=== PATIENT | female | born 1955 | race Caucasian/White ===

== ENCOUNTER 2017-05-13 10:13 | Emergency (ER) | payer OTHER ==
[2017-05-13] MEDS ORDERED: IBUPROFEN 800 MG TABLET PO ONE (11:03)
[2017-05-13] MEDS ORDERED: HYDROCODONE/ACETAMINOPHEN 5-325 MG TABLET PO ONE (11:05)
[2017-05-13] MEDS ORDERED: LIDOCAINE 5% (700 MG) TRANSDERMAL ADH..PATCH TP ONE (11:05)
--- NOTE | 2017-05-13 11:07 | ER Document Report ---
HPI - HPI Patient complains to provider of: rib pain Onset: Other - 2 days ago Onset/Duration: Persistent Quality of pain: Sharp Pain Level: 5 Context: Patient states that she was coughing 2 days ago and felt a sudden pop in the right lateral rib area. Patient states since then she has had pain with movement, coughing and reaching for objects with her right upper extremity. Patient denies any fever or dyspnea. Patient states she was diagnosed with asthmatic bronchitis and has an inhaler at home. Associated Symptoms: Chest pain - Right lateral rib tenderness with coughing, Nonproductive cough. denies: Productive cough, Fever, Headache, Nausea, Vomiting, Shortness of breath Exacerbated by: Movement, Coughing Relieved by: Remaining still Similar symptoms previously: No Recently seen / treated by doctor: Yes - ROS ROS below otherwise negative: Yes Systems Reviewed and Negative: Yes All other systems reviewed and negative - CONSTITUTIONAL Constitutional: DENIES: Fever, Chills - NEURO Neurology: DENIES: Weakness - CARDIOVASCULAR Cardiovascular: REPORTS: Chest pain - RESPIRATORY Respiratory: REPORTS: Coughing. DENIES: Trouble Breathing - GASTROINTESTINAL Gastrointestinal: DENIES: Abdominal Pain, Nausea, Patient vomiting - REPRODUCTIVE Reproductive: DENIES: : - MUSCULOSKELETAL Musculoskeletal: DENIES: Back Pain, Neck Pain - DERM Skin Color: Normal Skin Problems: None <ANTHONY TANG - Last Filed: 05/13/17 13:57> Past Medical History - General Information source: Patient - Social History Smoking Status: Never Smoker Chew tobacco use (# tins/day): No Frequency of alcohol use: None Drug Abuse: None Occupation: none Lives with: Spouse/Significant other Family History: CAD Patient has suicidal ideation: No Patient has homicidal ideation: No - Past Medical History Cardiac Medical History: Denies: Hx Coronary Artery Disease, Hx Heart Attack, Hx Hypertension Pulmonary Medical History: Reports: Hx Asthma, Hx Bronchitis Denies: Hx COPD, Hx Pneumonia Neurological Medical History: Denies: Hx Cerebrovascular Accident, Hx Seizures Renal/ Medical History: Denies: Hx Peritoneal Dialysis GI Medical History: Reports: Hx Gastroesophageal Reflux Disease, Hx Hiatal Hernia Musculoskeltal Medical History: Denies Hx Arthritis Psychiatric Medical History: Reports: Hx Anxiety, Hx Depression - anxiety Past Surgical History: Reports: Hx Cardiac Catheterization, Hx Genitourinary Surgery - bladder sling, Hx Tubal Ligation. Denies: Hx Hysterectomy, Hx Pacemaker - Immunizations Hx Diphtheria, Pertussis, Tetanus Vaccination: Yes - february 2011 <ANTHONY TANG - Last Filed: 05/13/17 13:57> Vertical Provider Document - CONSTITUTIONAL Agree With Documented VS: Yes Exam Limitations: No Limitations General Appearance: WD/WN, No Apparent Distress - INFECTION CONTROL TRAVEL OUTSIDE OF THE [place] IN LAST 30 DAYS: No - HEENT HEENT: Atraumatic, Normal ENT Exam, Normocephalic - NECK Neck: Normal Inspection, Supple - RESPIRATORY Respiratory: Breath Sounds Normal, No Respiratory Distress. negative: Chest Non -Tender - right lateral rib tenderness with palpation, Rales, Rhonchi, Wheezing O2 Sat by Pulse Oximetry: 95 - CARDIOVASCULAR Cardiovascular: Regular Rhythm, No Murmur, Tachycardia - 106 - GI/ABDOMEN Gastrointestinal: Abdomen Soft, Abdomen Non-Tender - BACK Back: Normal Inspection. negative: CVA Tenderness-Right, CVA Tenderness-Left - MUSCULOSKELETAL/EXTREMETIES Musculoskeletal/Extremeties: MAEW, FROM - NEURO Level of Consciousness: Awake, Alert, Appropriate Motor/Sensory: No Motor Deficit - DERM Integumentary: Warm, Dry, No Rash <ANTHONY TANG - Last Filed: 05/13/17 13:57> Course - Re-evaluation Re-evalutation: 05/13/17 12:25 resp unlabored HR 84, sat 95% RR 18 Worsening signs or symptoms that patient should return immediately for. Patient verbalized understanding and agrees with plan of care. The patient has been informed that they may have pre-hypertension or hypertension based on a blood pressure reading in the emergency department. I recommend that patient call the primary care provider listed on their discharge instructions or a physician of their choice by this week to arrange follow-up for further evaluation of possible pre-hypertension her hypertension. - Vital Signs Vital signs: Temp Pulse Resp BP Pulse Ox 98.0 F 113 H 12 145/78 H 95 05/13/17 10:25 05/13/17 10:25 05/13/17 10:46 05/13/17 10:25 05/13/17 10:25 - Diagnostic Test Radiology reviewed: Reports reviewed <ANTHONY TANG - Last Filed: 05/13/17 13:57> - Vital Signs Vital signs: Temp Pulse Resp BP Pulse Ox 98.0 F 95 16 128/79 H 95 05/13/17 12:41 05/13/17 12:41 05/13/17 12:41 05/13/17 12:41 05/13/17 13:58 <RADHA LUIS - Last Filed: 05/14/17 14:39> Discharge <ANTHONY TANG - Last Filed: 05/13/17 13:57> <RADHA LUIS - Last Filed: 05/14/17 14:39> - Discharge Clinical Impression: Chest wall pain, Bronchitis, Elevated blood pressure reading Condition: Stable Disposition: HOME, SELF-CARE Instructions: Chest Wall Pain ([facility]), Oral Narcotic Medication ([facility]), Bronchitis ([facility]) Additional Instructions: Return immediately for any new or worsening symptoms Followup with your primary care provider, call tomorrow to make a followup appointment Your blood pressure was elevated today, have your primary doctor recheck this next week. Take your Motrin that you have at home to help with inflammation Do not take the pain pill with your Klonopin to avoid any adverse medication reactions. Take one medication or the other but not both together Prescriptions: Hydrocodone/Acetaminophen [[place] 5-325 Tablet] 1 each PO Q8 PRN #12 tablet PRN Reason: Forms: Elevated Blood Pressure Referrals: PIERRE SANTA MD [Primary Care Provider] - Follow up as needed
--- NOTE | 2017-05-13 11:31 | RADIOLOGY REPORT (SQ) ---
EXAM DESCRIPTION: CHEST PA/LAT COMPLETED DATE/TIME: 05/13/2017 11:22 am REASON FOR STUDY: cough, r lateral rib pain COMPARISON: 08/14/2014 EXAM PARAMETERS: NUMBER OF VIEWS: two views TECHNIQUE: Digital Frontal and Lateral radiographic views of the chest acquired. RADIATION DOSE: NA LIMITATIONS: none FINDINGS: LUNGS AND PLEURA: No opacities, masses or pneumothorax. No pleural effusion. MEDIASTINUM AND HILAR STRUCTURES: No masses or contour abnormalities. HEART AND VASCULAR STRUCTURES: Heart normal size. No evidence for failure. BONES: No acute findings. HARDWARE: None in the chest. OTHER: No other significant finding. IMPRESSION: NO SIGNIFICANT RADIOGRAPHIC FINDING IN THE CHEST. TECHNICAL DOCUMENTATION: JOB ID: [id number] [employer]- All Rights Reserved
[2017-05-13 12:47] VITALS: BP 128/79
== END 2017-05-13 12:48 | disposition home or self-care (01) ==
LOC: ER 10:13
DX: R07.81 Pleurodynia (principal); J40 Bronchitis, not specified as acute or chronic; R03.0 Elevated blood-pressure reading, without diagnosis of hypertension; R05 Cough; Z98.51 Tubal ligation status
CPT/HCPCS: 71020; 99283

== ENCOUNTER 2018-09-04 07:32 | Day surgery (SDC) | payer OTHER ==
[~2018-09-04 07:32] MED LIST: PROPOFOL INJ 200 MG/20 ML VIAL IV ONE
[2018-09-04] MEDS ORDERED: SIMETHICONE 80 MG TAB.CHEW ONE (09:38)
[2018-09-04 10:16] VITALS: BP 126/89
--- NOTE | 2018-09-04 13:41 | Operative Report ---
Operative Report DATE OF SURGERY: 09/04/18 Operative Report: The risks, benefits and alternatives of the procedure including the risks of bleeding, perforation requiring surgery are explained to the patient in detail and informed consent is obtained. The patient is placed in a left, lateral decubital position. Timeout was called. Propofol medication is administered. A rectal examination is done which did not reveal any masses, tears or fissures. An Olympus videoscope was inserted to the patient's rectum. Scope was then carefully advanced all the way to the cecum. Cecum was identified by the usual anatomical landmarks including the ileocecal valve as well as appendiceal office. Photodocumentation is obtained. Prep was poor. Scope was then sequentially pulled back via the various segments of the colon including the ascending colon, hepatic flexure, transverse colon, splenic flexure, descending colon and finally into the rectosigmoid portions of the colon. Retroflexion maneuvers performed The risks benefits and alternatives of the procedure explained to the patient in detail and informed consent is obtained.A GIF Olympus video scope was inserted into the patient's mouth and hypopharynx, the esophagus is identified intubated and insufflated ,the scope was then advanced through the esophagus stomach and duodenum, retroflexion maneuver is done, the esophagus stomach and first and second portions of the duodenum examined PREOPERATIVE DIAGNOSIS: Personal history of polyps. Change of bowel habits. Blood in stool. Early satiety, dyspepsia POSTOPERATIVE DIAGNOSIS: Right colon inflammation status post biopsy. Internal hemorrhoids that likely explains the blood in his stool. Hiatal hernia. Gastritis status post biopsy. Esophagitis OPERATION: Colonoscopy with biopsy. EGD with biopsy SURGEON: CARROLL ARMANDO ANESTHESIA: LMAC TISSUE REMOVED OR ALTERED: As noted above. COMPLICATIONS: None. ESTIMATED BLOOD LOSS: None. INTRAOPERATIVE FINDINGS: As noted above. PROCEDURE: Patient tolerated the procedure well. No immediate postprocedure complications are noted. Patient discharged in good condition. Discharge date 09/04/2018. Discharge diet: Regular. Discharge activity: Regular. 2-3-week follow-up to discuss findings. Patient is instructed call the office or proceed to the emergency room after any further questions or concerns. We will wait on biopsies. Surveillance colonoscopy in 5 years.
== END 2018-09-04 10:06 | disposition home or self-care (01) ==
LOC: END 07:32
PROVIDERS: ATTEND Internal Medicine Gastroenterology
DX: K52.9 Noninfective gastroenteritis and colitis, unspecified (principal); K64.8 Other hemorrhoids; K44.9 Diaphragmatic hernia without obstruction or gangrene; K29.50 Unspecified chronic gastritis without bleeding; K92.1 Melena; E03.9 Hypothyroidism, unspecified; J45.909 Unspecified asthma, uncomplicated; E66.9 Obesity, unspecified; Z68.42 Body mass index [BMI] 45.0-49.9, adult; Z80.0 Family history of malignant neoplasm of digestive organs; Z79.51 Long term (current) use of inhaled steroids
CPT/HCPCS: 43239; 45380; 88342 ×2; 88305 ×2; J2704; 813

== ENCOUNTER → 2018-09-14 | Outpatient (CLI) | payer OTHER ==
--- NOTE | 2018-09-14 12:46 | RADIOLOGY REPORT (SQ) ---
EXAM DESCRIPTION: U/S ABDOMEN LIMITED W/O DOP COMPLETED DATE/TIME: 09/14/2018 12:08 pm REASON FOR STUDY: RUQ PAIN R10.11 RIGHT UPPER QUADRANT PAIN COMPARISON: CT abdomen pelvis 10/01/2014 TECHNIQUE: Dynamic and static grayscale images acquired of the abdomen and recorded on PACS. Additio nal selected color Doppler and spectral images recorded. LIMITATIONS: None. FINDINGS: PANCREAS: Midline pancreas unremarkable LIVER: No masses. Increased echogenicity from fatty infiltration. Small benign hepatic cysts in the left and right lobe liver less than 3 cm in size, similar compared to CT abdomen pelvis 10/01/2014 LIVER VASCULATURE: Normal directional flow of the main portal vein and hepatic veins. GALLBLADDER: No stones. Normal wall thickness. No pericholecystic fluid. ULTRASOUND-DETECTED HIDALGO'S SIGN: Negative. INTRAHEPATIC DUCTS AND COMMON DUCT: CBD and intrahepatic ducts normal caliber. No filling defects. INFERIOR VENA CAVA: Normal flow. AORTA: No aneurysm. RIGHT KIDNEY: Normal size. Normal echogenicity. No solid or suspicious masses. No hydronephrosis. No calcifications. PERITONEAL AND RIGHT PLEURAL SPACE: No ascites or effusions. OTHER: No other significant findings. IMPRESSION: Fatty liver, no gallstones TECHNICAL DOCUMENTATION: JOB ID: [id number] [employer]- All Rights Reserved Reading location - IP/workstation name: [email or web address]
== END ==
LOC: RAD 11:10
PROVIDERS: ATTEND Internal Medicine Gastroenterology
DX: R10.11 Right upper quadrant pain (principal)
CPT/HCPCS: 76705

== ENCOUNTER 2018-12-01 11:21 | Day surgery (SDC) | payer OTHER ==
--- NOTE | 2018-11-24 10:05 | RADIOLOGY REPORT (SQ) ---
EXAM DESCRIPTION: CHEST PA/LATERAL COMPLETED DATE/TIME: 11/24/2018 9:36 am REASON FOR STUDY: PRE-OP COMPARISON: 05/13/2017 EXAM PARAMETERS: NUMBER OF VIEWS: two views TECHNIQUE: Digital Frontal and Lateral radiographic views of the chest acquired. RADIATION DOSE: NA LIMITATIONS: none FINDINGS: LUNGS AND PLEURA: No opacities, masses or pneumothorax. No pleural effusion. MEDIASTINUM AND HILAR STRUCTURES: No masses or contour abnormalities. HEART AND VASCULAR STRUCTURES: Heart normal size. No evidence for failure. BONES: No acute findings. HARDWARE: None in the chest. OTHER: No other significant finding. IMPRESSION: No evidence of acute cardiopulmonary process. TECHNICAL DOCUMENTATION: JOB ID: [id number] [employer]- All Rights Reserved Reading location - IP/workstation name: [email or web address]
[2018-11-24 10:12] LABS: HEMATOCRIT 41.4 % (36.0-47.0); MEAN CORPUSCULAR HEMOGLOBIN 28.3 pg (27.0-33.4); MEAN CORPUSCULAR HGB CONC 33.9 g/dL (32.0-36.0); MEAN CORPUSCULAR VOLUME 84 fl (80-97); PLATELET COUNT 320 10^3/uL (150-450); RED BLOOD COUNT 4.94 10^6/uL (3.72-5.28); RED CELL DISTRIBUTION WIDTH 14.5 % (11.5-14.0); WHITE BLOOD COUNT 7.1 10^3/uL (4.0-10.5)
[2018-11-24 10:47] LABS: ALANINE AMINOTRANSFERASE 28 U/L (9-52); ALBUMIN 4.3 g/dL (3.5-5.0); ALKALINE PHOSPHATASE 97 U/L (38-126); ANION GAP 9 (5-19); ASPARTATE AMINO TRANSFERASE 41 U/L (14-36); BILIRUBIN,DIRECT 0.3 mg/dL (0.0-0.4); BILIRUBIN,TOTAL 0.5 mg/dL (0.2-1.3); BLOOD UREA NITROGEN 13 mg/dL (7-20); CALCIUM 9.6 mg/dL (8.4-10.2); CARBON DIOXIDE 28 mmol/L (22-30); CHLORIDE 104 mmol/L (98-107); GLUCOSE 103 mg/dL (75-110); POTASSIUM 4.7 mmol/L (3.6-5.0); SODIUM 140.6 mmol/L (137-145); TOTAL PROTEIN 7.3 g/dL (6.3-8.2)
--- NOTE | 2018-11-24 23:02 | EKG REPORT ---
SEVERITY:- NORMAL ECG - SINUS RHYTHM : Confirmed by: Shayna Jones MD 24-Nov-2018 23:01:27
[~2018-12-01 11:21] MED LIST changes: +CEFOXITIN SODIUM 2 GM in DEXTROSE 5%-WATER 100 ML IV PRN; +IBUPROFEN 800 MG in NORMAL SALINE 250 ML IV PRN; +LACTATED RINGERS 1000 ML IV PRN; +LIDOCAINE 0.5% INJ-PF (5 MG/ML) 50 ML SDV SUBCUT PRN; -PROPOFOL INJ 200 MG/20 ML VIAL IV ONE; +ROCURONIUM BROMIDE INJ 50 MG/5 ML VIAL IV ONE; +SUCCINYLCHOLINE CHLORIDE INJ 200 MG/10 ML VIAL ONE
[2018-12-01] MEDS ORDERED: FAMOTIDINE INJ/PF 20 MG/2 ML SDV IV ONE (12:59)
[2018-12-01] MEDS ORDERED: METOCLOPRAMIDE HCL INJ/PF 10 MG/2 ML SDV ONE (13:00)
[2018-12-01] MEDS ORDERED: MIDAZOLAM 2 MG/2 ML INJ ONE (16:33)
[2018-12-01] MEDS ORDERED: ONDANSETRON HCL INJ/PF 4 MG/2 ML SDV ONE (16:33)
[2018-12-01] MEDS ORDERED: FENTANYL CITRATE INJ/PF 100 MCG/2 ML AMPUL ONE (16:33)
[2018-12-01] MEDS ORDERED: DEXAMETHASONE SOD PHOSPHATE INJ 4 MG/1 ML VIAL ONE (16:33)
[2018-12-01] MEDS ORDERED: HYDROMORPHONE HCL INJ/PF 2 MG/ML AMPULE ONE (16:33)
[2018-12-01] MEDS ORDERED: ACETAMINOPHEN 1,000 MG/100 ML RTUPB IV ONE (16:34)
[2018-12-01] MEDS ORDERED: PROPOFOL INJ 200 MG/20 ML VIAL IV ONE (16:34)
[2018-12-01] MEDS ORDERED: BUPIVACAINE HCL 0.25 % INJ/PF (2.5 MG/1 ML) 30 ML VIAL ONE (16:51)
[2018-12-01] MEDS ORDERED: MEPERIDINE HCL/PF INJ 25 MG/1 ML DISP.SYRIN IV PRN (17:38)
[2018-12-01] MEDS ORDERED: PROMETHAZINE HCL INJ 25 MG/1 ML VIAL IV PRN (17:38)
[2018-12-01] MEDS ORDERED: FENTANYL CITRATE INJ/PF 100 MCG/2 ML AMPUL IV PRN ×3 (17:38)
[2018-12-01] MEDS ORDERED: DIPHENHYDRAMINE HCL 50 MG/ML VIAL IV PRN (17:38)
--- NOTE | 2018-12-01 18:29 | Discharge Summary ---
Discharge Summary (SDC) - Discharge Final Diagnosis: Biliary dyskinesia. Date of Surgery: 12/01/18 Discharge Date: 12/01/18 Condition: Stable Treatment or Instructions: Discharge home. Diet as tolerated. Activity: No lifting greater than 10 pounds x 2 weeks. [place] 10/325 mg p.o. every 6 hours as needed for pain. Follow-up in 7-10 days. Okay to shower in 48 hours. No tub baths or swimming pools times 2 weeks. Referrals: PIERRE SANTA MD [Primary Care Provider] - Discharge Diet: As Tolerated Respiratory Treatments at Home: Deep Breathing/Coughing, Incentive Spirometer Discharge Activity: No Lifting Over 10 Pounds Home Care Assistance: None Needed Report the Following to Your Physician Immediately: Shortness of Breath, Nausea, Vomiting, Increase in Pain, Signs of Hyperglycemia, Signs of Hypoglycemia, Fever over 101 Degrees, Unusual Bleeding, Redness, Swelling, Warmth
--- NOTE | 2018-12-01 18:38 | Operative Report ---
Nonrecallable Operative Report DATE OF SURGERY: 12/01/18 PREOPERATIVE DIAGNOSIS: biliary dyskinesia POSTOPERATIVE DIAGNOSIS: same OPERATION: laparoscopic cholecystectomy SURGEON: ANABEL HALL ANESTHESIA: GA TISSUE REMOVED OR ALTERED: gallbladder COMPLICATIONS: none apparent ESTIMATED BLOOD LOSS: minimal PROCEDURE: drains: none Procedure in detail: After informed consent was obtained, the patient was brought to the operating room and laid in the supine position. The area of the abdomen was prepped and draped in a normal sterile fashion. A supraumbilical incision was then created with a 15 blade scalpel. Dissection was carried through the subcutaneous tissue using sharp and blunt means. The cicatrix was identified, grasped with a Keira clamp, and retracted upwards. The linea alba fascia was incised sharply, the abdomen was entered sharply. The balloon trocar was inserted, and pneumoperitoneum was achieved. A subxiphoid 5 mm port was placed under direct laparoscopic visualization. 2 more 5 mm ports were placed in the right upper quadrant in similar fashion. Atraumatic graspers were placed through the 5 mm ports. The gallbladder was retracted cephalad and laterally. Dissection was begun in the triangle of [place]. The cystic duct and cystic artery were fully visualized and skeletonized, seeing the liver through the triangle. Once the critical view of safety was obtained, the cystic duct and cystic artery were clipped and cut with laparoscopic instruments. The gallbladder was then removed from the liver using Bovie electrocautery. The gallbladder was grasped with a large clamp and pulled out through the umbilicus. The camera was reinserted. The hilum was inspected. It was found to be free of any leakage of blood or bile. Once this was confirmed, the 5mm trochars were removed under direct laparoscopic visualization. The supraumbilical trocar was removed, and pneumoperitoneum was relieved. The supra umbilical fascia was closed using 0 Vicryl suture in [id number] fashion. The overlying skin was closed using 4-0 Vicryl Rapide suture in subcuticular fashion. All sponge, instrument, needle counts were correct x2. Condition: Stable.
[2018-12-01] MEDS: NALOXONE HCL INJ/PF 0.4 MG/1 ML SDV ONE ×2 (20:40→21:04)
[2018-12-02] MEDS: HYDROCODONE/ACETAMINOPHEN 10-325 MG TABLET PO PRN ×2 (05:59→12:29)
--- NOTE | 2018-12-02 15:37 | PDOC DISCHARGE SUMMARY ---
General - Admit/Disc Date/PCP Admission Date/Primary Care Provider: PIERRE SANTA MD Discharge Date: 12/02/18 - Discharge Diagnosis (1) Biliary dyskinesia Is this a current diagnosis for this admission?: Yes (2) Oxygen desaturation Is this a current diagnosis for this admission?: Yes - Additional Information Discharge Diet: As Tolerated Discharge Activity: Activity As Tolerated, No Driving, No Lifting Over 10 Pounds, No Lifting/Push/Pulling, Slowly Increase Activity, No tub bath Home Medications: Citalopram Hydrobromide [Celexa] 40 mg PO DAILY 03/25/14 Trazodone HCl [Desyrel 50 mg Tablet] 100 mg PO QHS 03/25/14 Albuterol Sulfate [Proair HFA] 1 - 2 puff IH Q4 PRN 09/01/18 Budesonide/Formoterol Fumarate [Symbicort 160-4.5 Mcg Inhaler] 2 puff IH BID 09/01/18 Clonazepam 0.5 mg PO ASDIR PRN 09/01/18 Ferrous Sulfate [Iron] 65 mg PO DAILY 09/01/18 Fexofenadine HCl [Bing] 180 mg PO DAILY 09/01/18 Levothyroxine Sodium 50 mcg PO DAILY 09/01/18 Temazepam 15 mg PO QHS 09/01/18 Acetaminophen [Tylenol Arthritis] 650 mg PO PRN PRN 11/23/18 Dexlansoprazole [Dexilant] 60 mg PO DAILY 11/23/18 History of Present Illness History of Present Illness: CADY FORD is a 63 year old female presenting to the hospital for outpatient cholecystectomy. After surgery, the patient had issues with desaturation. This is likely due to the medications received during surgery. The patient was admitted to the hospital for observation and oxygen therapy. Hospital Course Hospital Course: The patient was taken to the floor in stable condition. She remained on oxygen overnight. In the morning aggressive pulmonary toilet was instituted, and her oxygen was discontinued. The patient was ambulated in the hallways and her oxygen saturation was found to be approximately 91% on room air. The patient is not short of breath. At this time it was felt that the patient had reached maximal hospital benefit, and was fit for discharge. Physical Exam Vital Signs: Temp Pulse Resp BP Pulse Ox 98.3 F 77 18 119/60 97 12/02/18 12:17 12/02/18 12:17 12/02/18 12:17 12/02/18 12:17 12/02/18 12:17 Intake & Output 12/01/18 12/02/18 12/03/18 06:59 06:59 06:59 Intake Total 2605 580 Output Total 15 1700 Balance 2590 -1120 Weight 127.01 kg Results Laboratory Results: 11/24/18 09:23 11/24/18 09:23 Impressions: Chest X-Ray 11/24/18 09:31 IMPRESSION: No evidence of acute cardiopulmonary process. Qualifiers - * PATIENT BEING DISCHARGED WITH ANY OF THE FOLLOWING DIAGNOSIS: No Plan Discharge Plan: Discharge home. Diet as tolerated. Activity: No lifting greater than 10 pounds x 2 weeks. Follow-up with me in 7-10 days. [place] 10/325 mg p.o. every 6 hours as needed for pain. Take incentive spirometer home and use 10 times every hour while awake. Okay to shower on Tuesday. No tub baths, swimming pools, or hot tubs times 2 weeks Time Spent: Less than 30 Minutes
[2018-12-02 16:40] VITALS: BP 117/49
== END 2018-12-02 17:02 | disposition home or self-care (01) ==
LOC: 5 11:21 → OROUT 11:21
PROVIDERS: ATTEND Surgery
DX: K81.1 Chronic cholecystitis (principal); Z23 Encounter for immunization; I34.1 Nonrheumatic mitral (valve) prolapse; J45.909 Unspecified asthma, uncomplicated; Z79.51 Long term (current) use of inhaled steroids
CPT/HCPCS: 93005; 36415; 85027; 80053; 88304 ×2; 71046; 90686; 93010; 47562; G0008; J2250; J3490; J1100; J0694; J2765; J2310; J1170; J0330; J2405; J7050; J2704; S0028; J0131; J1741; 790; 90471; J3010

== ENCOUNTER 2019-03-26 10:20 | Day surgery (SDC) | payer OTHER ==
[~2019-03-26 10:20] MED LIST changes: -CEFOXITIN SODIUM 2 GM in DEXTROSE 5%-WATER 100 ML IV PRN; -IBUPROFEN 800 MG in NORMAL SALINE 250 ML IV PRN; -LACTATED RINGERS 1000 ML IV PRN; -LIDOCAINE 0.5% INJ-PF (5 MG/ML) 50 ML SDV SUBCUT PRN; +PROPOFOL INJ 200 MG/20 ML VIAL IV ONE; -ROCURONIUM BROMIDE INJ 50 MG/5 ML VIAL IV ONE; -SUCCINYLCHOLINE CHLORIDE INJ 200 MG/10 ML VIAL ONE
--- NOTE | 2019-03-26 13:07 | Operative Report ---
Operative Report DATE OF SURGERY: 03/26/19 Operative Report: The risks benefits and alternatives of the procedure explained to the patient in detail and informed consent is obtained.A GIF Olympus video scope was inserted into the patient's mouth and hypopharynx, the esophagus is identified intubated and insufflated, the scope was then advanced through the esophagus stomach and duodenum, retroflexion maneuver is done, the esophagus stomach and first and second portions of the duodenum examined. PREOPERATIVE DIAGNOSIS: Epigastric pain peptic ulcer disease POSTOPERATIVE DIAGNOSIS: Schatzki's ring status post breakage. Gastritis status post biopsy rule out Helicobacter pylori. Esophagitis versus Ralph's status post biopsy OPERATION: EGD with biopsy SURGEON: CARROLL ARMANDO ANESTHESIA: LMAC TISSUE REMOVED OR ALTERED: As noted above. COMPLICATIONS: None. ESTIMATED BLOOD LOSS: None. INTRAOPERATIVE FINDINGS: As noted above. PROCEDURE: Patient tolerated the procedure well. No immediate postprocedure complications are noted. Patient discharged in good condition. Discharge date 03/26/2019. Discharge diet: Regular. Discharge activity: Regular. 2 to 3-week follow-up to discuss findings. Patient is instructed to call the office or proceed to the emergency room should there be any further proximal questions. Wait on the pathology.
[2019-03-26 13:14] VITALS: BP 149/86
== END 2019-03-26 12:02 | disposition home or self-care (01) ==
LOC: END 10:20
PROVIDERS: ATTEND Internal Medicine Gastroenterology
DX: K22.2 Esophageal obstruction (principal); K20.9 Esophagitis, unspecified; K29.50 Unspecified chronic gastritis without bleeding; E03.9 Hypothyroidism, unspecified; D64.9 Anemia, unspecified; Z79.899 Other long term (current) drug therapy; Z79.51 Long term (current) use of inhaled steroids; Z13.89 Encounter for screening for other disorder
CPT/HCPCS: 43239; 88305 ×2; 88313 ×2; J2704; 731

== ENCOUNTER → 2019-06-05 | Outpatient (CLI) | payer OTHER ==
--- NOTE | 2019-06-05 13:56 | WOMENS IMAGING REPORT ---
EXAM DESCRIPTION: 3D SCREENING MAMMO BILAT COMPLETED DATE/TIME: 06/05/2019 1:14 pm REASON FOR STUDY: Z12.31 ENCOUNTER FOR SCREENING MAMMOGRAM FOR MALIGNANT NEOPLASM OF BREAST Z12.31 ENCNTR SCREEN MAMMOGRAM FOR MALIGNANT NEOPLASM OF PL[place]IDO Z78.0 ASYMPTOMATIC MENOPAUSAL STATE COMPARISON: [id number] EXAM PARAMETERS: Standard craniocaudal and mediolateral oblique views of each breast recorded using digital acquisition and breast tomosynthesis. Read with the assistance of CAD. .[facility] - [employer] Version 9.2 LIMITATIONS: None. FINDINGS: Findings present which are benign by mammographic criteria. No suspicious masses, calcific ations or architectural distortion. Pertinent benign findings: Fibrocystic change. Benign mammographic findings may include one or more of the following: Smooth masses, popcorn/rim/coa rse calcifications, asymmetries, post-procedure changes, and lesions with long-standing stability. IMPRESSION: BENIGN MAMMOGRAPHIC FINDINGS. BIRADS 2 BREAST DENSITY: b. There are scattered areas of fibroglandular density. BIRAD: ASSESSMENT: 2 BENIGN FINDING(S) RECOMMENDATION: ROUTINE SCREENING COMMENT: The patient has been notified of the results by letter per SA requirements. Additional no tification policies are in place for contacting patient with suspicious or incomplete findings. Quality ID #[id number]: The [employer] recommends an annual screening mammogram for women aged 40 years or over. This facility utilizes a reminder system to ensure that all patients receive reminder letters, and/or direct phone calls for appointments. This includes reminders for routine scr eening mammograms, diagnostic mammograms, or other Breast Imaging Interventions when appropriate. Th is patient will be placed in the appropriate reminder system. TECHNICAL DOCUMENTATION: FINDING NUMBER: (1) ASSESSMENT: (1) JOB ID: [id number] [employer]- All Rights Reserved Reading location - IP/workstation name: [email or web address]
--- NOTE | 2019-06-05 14:01 | WOMENS IMAGING REPORT ---
EXAM DESCRIPTION: BONE DENSITY HIP/SPINE COMPLETED DATE/TIME: 06/05/2019 1:14 pm REASON FOR STUDY: Z78.0 ASYMPTOMATIC MENOPAUSAL STATE Z12.31 ENCNTR SCREEN MAMMOGRAM FOR MALIGNANT NEOPLASM OF [place]ID[place] Z78.0 ASYMPTOMATIC MENOPAUSAL STATE COMPARISON: None. TECHNIQUE: Dual-Energy X-ray Absorptiometry (DEXA) of the AP Spine and Hip. LIMITATIONS: None. FINDINGS: LUMBAR SPINE: The bone mineral density (BMD) measured from L1-L4 in the AP projection correlates with a T-score of -2.5, which is osteoporosis as defined by the World Health Organization. BMD Change vs Baseline: -2.0% HIP: The bone mineral density (BMD) measured in the left hip correlates with a T-score of -0.9 in the femo ral neck, which is normal as defined by the World Health Organization. BMD Change vs Baseline: -6.4% 10 year Fracture Risk Assessment: Major Osteoporotic Fracture: Not available. Hip Fracture: Not available. IMPRESSION: 1. LUMBAR SPINE WHO CLASSIFICATION: OSTEOPOROSIS. 2. HIP WHO CLASSIFICATION: NORMAL. OVERALL ASSESSMENT: WHO CLASSIFICATION: OSTEOPOROSIS. COMMENT: The World Health Organization defines low BMD as follows: T-score: Normal: Greater than -1.0 Osteopenia: Between -1.0 and -2.5 Osteoporosis: Less than -2.5 without fractures Established osteoporosis: Less than -2.5 with fractures In general, you may wish to consider: Diagnosis Treatment Follow-up DEXA Normal BMD Prevention 2-3 years Osteopenia Prevention/Therapy 1-2 years Osteoporosis Therapy Yearly TECHNICAL DOCUMENTATION: JOB ID: [id number] [employer]- All Rights Reserved Reading location - IP/workstation name: [email or web address]
== END ==
LOC: WI 12:42
PROVIDERS: ATTEND Physician Assistant
DX: Z12.31 Encounter for screening mammogram for malignant neoplasm of breast (principal); Z78.0 Asymptomatic menopausal state; N81.0 Urethrocele
CPT/HCPCS: 77063; 77067; 77080

== ENCOUNTER → 2019-11-08 | Outpatient (CLI) | payer OTHER ==
--- NOTE | 2019-11-08 16:05 | RADIOLOGY REPORT (SQ) ---
EXAM DESCRIPTION: CT ABDOMEN IV CONTRAST ONLY COMPLETED DATE/TIME: 11/08/2019 9:58 am REASON FOR STUDY: RUQ PAIN (R10.11) R10.11 RIGHT UPPER QUADRANT PAIN COMPARISON: CT abdomen pelvis 10/01/2014 TECHNIQUE: CT scan of the abdomen performed with intravenous and without oral contrast using helical scanning technique with dynamic intravenous contrast injection. Images reviewed with lung, soft tiss ue, and bone windows. Reconstructed coronal and sagittal MPR images reviewed. Delayed images for eval uation of the urinary system also acquired and evaluated. All images stored on PACS. All CT scanners at this facility use dose modulation, iterative reconstruc tion, and/or weight based dosing when appropriate to reduce radiation dose to as low as reasonably ac hievable (ALARA). [facility]: Dose Right [facility]: CareDose [facility]: Dose Right [facility]: Teradose 4D [facility]: [place] CONTRAST TYPE AND DOSE: contrast/concentration: Isovue 350.00 mg/ml; Total Contrast Delivered: 100.0 ml; Total Saline Delivered: 72.0 ml RENAL FUNCTION: Creatinine 1.0 RADIATION DOSE: CT Rad equipment meets quality standard of care and radiation dose reduction techniq ues were employed. CTDIvol: 21.5 - 22.0 mGy. DLP: 1553 mGy-cm. . LIMITATIONS: None. FINDINGS: LOWER CHEST: No significant findings. No nodules or infiltrates. Small hiatal hernia LIVER: Normal size. No masses. Multiple benign hepatic cysts less than 2.5 cm in size. No dilated d ucts. SPLEEN: Normal size. No focal lesions. PANCREAS: No masses. No significant calcifications. No adjacent inflammation or peripancreatic fluid collections. Pancreatic duct not dilated. GALLBLADDER: Surgically absent ADRENAL GLANDS: No significant masses or asymmetry. RIGHT KIDNEY AND URETER: No solid masses. No significant calcifications. No hydronephrosis or hyd roureter. LEFT KIDNEY AND URETER: No solid masses. 6 mm left renal pelvis nonobstructive stone 525 Hounsfield units No hydronephrosis or hydroureter. AORTA AND VESSELS: No aneurysm. No dissection. Renal arteries, SMA, celiac without stenosis. RETROPERITONEUM: No retroperitoneal adenopathy, hemorrhage or masses. BOWEL AND PERITONEAL CAVITY: No oral contrast. No masses or inflammatory changes. No free fluid or p eritoneal masses. APPENDIX: Normal. ABDOMINAL WALL: No masses. Tiny fat containing umbilical hernia. BONES: No significant or acute findings. OTHER: No other significant finding. IMPRESSION: No CT findings to explain history of epigastric pain. Post cholecystectomy. 6 mm nonobstructive left renal pelvis stone. TECHNICAL DOCUMENTATION: JOB ID: [id number] Quality ID # [id number]: Final reports with documentation of one or more dose reduction techniques (e.g., Au tomated exposure control, adjustment of the mA and/or kV according to patient size, use of iterative reconstruction technique) 2010 [employer]- All Rights Reserved Reading location - IP/workstation name: [email or web address]
== END ==
LOC: RAD 09:28
PROVIDERS: ATTEND Internal Medicine Gastroenterology
DX: R10.11 Right upper quadrant pain (principal); N20.0 Calculus of kidney; K42.9 Umbilical hernia without obstruction or gangrene
CPT/HCPCS: 74160; 82565

== ENCOUNTER 2020-11-28 07:05 | Day surgery (SDC) | payer MEDICARE, OTHER ==
[2020-11-28 09:06] VITALS: BP 120/68
--- NOTE | 2020-11-28 11:51 | Operative Report ---
Operative Report DATE OF SURGERY: 11/28/20 Operative Report: The risk, benefits and alternatives of the procedure including the risk of bleeding, perforation requiring surgery have been explained to the patient in detail and informed consent has been obtained. The patient is placed in the left, lateral decubital position. Timeout was called. Propofol medication is administered. Rectal examination is done which did not reveal any masses, tears or fissures. An Olympus videoscope was introduced into the patient's rectum. Scope was then carefully advanced all the way to the cecum. Cecum was identified by the usual anatomical landmarks including the ileocecal valve as well as the appendiceal office. Photodocumentation is obtained. Scope was then sequentially pulled back via the various segments of the colon including the ascending colon, hepatic flexure, transverse colon, splenic flexure, descending colon finding to the rectosigmoid portions of the colon. Retroflexion maneuver is performed. The risks benefits and alternatives of the procedure explained to the patient in detail and informed consent is obtained.A GIF Olympus video scope was inserted into the patient's mouth and hypopharynx, the esophagus is identified intubated and insufflated, the scope was then advanced through the esophagus stomach and duodenum ,retroflexion maneuver is done, the esophagus stomach and first and second portions of the duodenum examined PREOPERATIVE DIAGNOSIS: Change in bowel habits. Gastroesophageal reflux disease POSTOPERATIVE DIAGNOSIS: Right sidecolon Inflammation status post biopsy. Internal hemorrhoids. Gastritis status post biopsy rule out Helicobacter pylori OPERATION: Colonoscopy with biopsy. EGD with biopsy SURGEON: CARROLL ARMANDO ANESTHESIA: LMAC TISSUE REMOVED OR ALTERED: As noted above. COMPLICATIONS: None. ESTIMATED BLOOD LOSS: None. INTRAOPERATIVE FINDINGS: As noted above. PROCEDURE: Patient tolerated the procedure well. No immediate postprocedure complications are noted. Patient is discharged in good condition. Discharge date 11/28/2020. Discharge diet: Regular. Discharge activity: Regular. 2 to 3-week follow-up to discuss findings. Patient is instructed call the office or proceed to the emergency room should there be any further problems or questions. Wait on the pathology.
== END 2020-11-28 09:20 | disposition home or self-care (01) ==
LOC: OROUT 07:05
PROVIDERS: ATTEND Internal Medicine Gastroenterology
DX: K29.50 Unspecified chronic gastritis without bleeding (principal); K52.9 Noninfective gastroenteritis and colitis, unspecified; K21.00 Gastro-esophageal reflux disease with esophagitis, without bleeding; K64.8 Other hemorrhoids; K59.00 Constipation, unspecified; J45.909 Unspecified asthma, uncomplicated; Z79.899 Other long term (current) drug therapy; E03.9 Hypothyroidism, unspecified; E66.9 Obesity, unspecified; D64.9 Anemia, unspecified; Z79.890 Hormone replacement therapy; Z80.0 Family history of malignant neoplasm of digestive organs; Z79.1 Long term (current) use of non-steroidal anti-inflammatories (NSAID); Z98.51 Tubal ligation status; Z98.890 Other specified postprocedural states; Z68.41 Body mass index [BMI] 40.0-44.9, adult
CPT/HCPCS: 43239; 45380; 88305 ×2; 00813; J2704; 813